=== PATIENT | male | born 1960 | race Two or more races ===

== ENCOUNTER 2025-02-12 02:01 | Inpatient (IN) | payer BC, SELFPAY ==
[2025-02-11 19:16] VITALS: BP 131/73
--- NOTE | 2025-02-11 19:35 | ED.GENMED ---
History of Present Illness
<Nneka Shannon PHARMACY CONSULTANT - Last Filed: 02/12/25 02:11>
General
Chief Complaint: Fever
Source: patient and family (fiance at bedside)
Exam Limitations: none
Time Seen by Provider: 02/11/25 19:34
Nursing documentation reviewed up to this point in time: agreed with
History of Present Illness
History of Present Illness:
64-year-old male with history of aortocoronary bypass, NIDDM, HLD, woke at 3 a.m with rigors for 2 hours, went back to sleep until 1 p.m, awakened with headache /10, mild confusion (per fiance at bedside) fever 102.9, nausea, no vomiting. No
diarrhea. Denies CP, SOB, abdominal pain. No known sick contacts, no recent travel.
Has taken nothing for fever/headache. States h/a much improved 01/31 now
[place] well yesterday,, went out to dinner and ice cream.
Past History
<Nneka Shannon, PHARMACY CONSULTANT - Last Filed: 02/12/25 02:11>
Past History
ED Past Medical History: Hypercholesterolemia and NIDDM
ED Past Surgical History: Cardiac (Heart valve/triple bypass) and Orthopedic (Lumbar spinal fusion June 2024, R and L shoulder and knee surgeries, carpal tunnel)
Social History
Tobacco: Smoker
Alcohol: None
Drug: None
Personal: Partner (Fianc� at bedside)
Employment: Disabled
Review of Systems
<Nneka Shannon, PHARMACY CONSULTANT - Last Filed: 02/12/25 02:11>
Review of Systems
Allergies reviewed?: Yes
All Other Systems: ROS reviewed and negative except as documented in HPI and ROS
Constitutional: Reports fever, fatigue and chills
EENT: Denies sore throat
Respiratory: Reports cough; Denies trouble breathing
Cardiac: Denies chest pain
ABD/GI: Reports nausea; Denies abdominal pain, vomiting, diarrhea or constipated
: Denies dysuria, frequency or difficulty voiding
Musculoskeletal: Reports back pain (chronic)
Skin: Reports no symptoms
Neurological: Reports headache (improving); Denies dizzy, weakness or numbness
Phy Exam
<Nneka Shannon, PHARMACY CONSULTANT - Last Filed: 02/12/25 02:11>
Physical Exam
Physical Exam:
GENERAL: No acute distress. A&Ox3.
CONSTITUTIONAL: 102.9
EYES: clear, conjunctivae normal
ENMT: moist mucus membranes, Pharynx nl
Neck: Supple
RESPIRATORY: Regular respirations, nonlabored, lungs clear. Intermittent dry cough
CARDIOVASCULAR: Regular rate and rhythm, no murmurs, no rubs.
GI: Soft, nontender, normal BS
MUSCULOSKELETAL: Moves with ease. Well perfused. No edema
SKIN: Warm, dry, pink
PSYCH: Normal mood and affect. Well kept, interactive and appropriate
NEUROLOGIC: Awake, alert and oriented. No focal neurological deficits
Course
<Nneka Shannon, PHARMACY CONSULTANT - Last Filed: 02/12/25 02:11>
Orders/Labs/Results
Orders:
Orders
02/11/25 19:19
CR Chest - 2 Views Urgent
Comment:
Reason For Exam: fever
02/11/25 19:46
Acetaminophen [Tylenol] 1,000 mg PO NOW STA
02/11/25 19:47
0.9% Sodium Chloride 1000 ml [Nss] 1,000 ml IV BOLUS
Acetaminophen [Tylenol] 1,000 mg .ROUTE .STK-MED ONE
02/11/25 19:55
COVID-19 Antigen Urgent
Source: Nasal Swab
Complete Blood Count/With Diff Urgent
Comprehensive Metabolic Panel Urgent
NT-proBNP Urgent
Comment: ADD ON
Influenza A+B Rapid Molecular Urgent
[facility] Source: Nasal Swab
Specimen Description:
02/11/25 21:41
Add On- LAB Urgent
Tests Added?: BNP
02/11/25 22:59
Urinalysis Reflex To Culture Urgent
Date Specimen was Collected: 02/11/25
Time Specimen was Collected: 22:52
Urine Microscopic Reflex Cult Urgent
Urine Culture Urgent
[facility] Source: U
Specimen Description:
Date Specimen was Collected: 02/11/25
Time Specimen was Collected: 22:52
02/11/25 23:29
Azithromycin 500 mg/250 ml [Zithromax Infusion] 500 mg in 250 ml IV NOW
CefTRIAXone [Rocephin] 1,000 mg IV NOW STA
02/11/25 23:45
Lactic Acid Q4H
Comment: CANCEL 2nd LACTIC ACID IF 1st LACTIC ACID IS LESS THAN 2
Blood Culture Q30M
[facility] Source: Blood/Venous
Specimen Description:
02/11/25 23:55
Ibuprofen [Motrin] 800 mg PO NOW STA
02/12/25 00:09
Blood Culture Q30M
[facility] Source: Blood/Venous
Specimen Description:
02/12/25 00:11
Procalcitonin Urgent
Comment: REDRAW
02/12/25 01:44
MRSA Screen Routine
[facility] Source: Nose
Specimen Description:
Vancomycin 1 Gram/200 ml [Vancocin] 1 gram in 200 ml IV NOW
02/12/25 01:45
Admit/Transfer Patient As Directed
Co-Sign Provider:
Level of Care: Inpatient admission
Assign to:: Telemetry
Physician / Group: Candido
Diagnosis: Sepsis
Reason for Telemetry: Arrhythmia
Date to Stop Telemetry: 02/15/25
Time to Stop Telemetry: 11:00
Reason for Hospitalization: Sepsis
Expected length of stay greater than two midnights?: Yes
ELOS- Estimated Length of Stay in days: 3
I certify the patient meets the requirements for IP care: Yes
PRN Pain Medication Management As Directed
May give lesser potent ordered pain med per pt: Yes
preference::
Protocol:: Medication orders for pain may be administered in a
manner that supports deferring to patient preference
when the pt is:
- Requesting an ordered lesser potent pain medication.
Least to most potent pain medications are defined
as: acetaminophen < NSAID < tramadol < opioids
(morphine, oxycodone, hydromorphone).
- Requesting a lesser dose of the same medication IF
ORDERED.
- Requesting a less intrusive route of administration
if both routes are prescribed by the provider (PO <
IV).
02/12/25 01:46
Code Status As Directed
Resuscitation Status: Full Code
02/15/25 11:00
DC Protocol for Telemetry ONCE
Abnormal Lab Results
02/11/25 02/11/25 02/12/25
19:55 22:59 00:11
WBC 13.2 H 10^3/uL
(4.8-10.8)
RBC 4.03 L 10^6/uL
(4.70-6.10)
Hgb 12.5 L g/dL
(13.0-18.0)
Hct 35.8 L %
(39.0-52.0)
Abs Immat Gran (auto) 0.1 H 10^3/uL
(0-0.05)
Absolute Neuts (auto) 10.6 H 10^3/uL
(1.4-6.5)
Absolute Monos (auto) 0.8 H 10^3/uL
(0.1-0.6)
Immature Gran % 0.8 H %
(0-0.5)
Neutrophils % 80.3 H %
(42.2-75.2)
Lymphocytes % 12.9 L %
(20.5-51.1)
Sodium 131 L mmol/L
(135-145)
Carbon Dioxide 20 L mmol/L
(22-30)
BUN 26 H mg/dl
(9-20)
Glucose 139 H mg/dl
(70-99)
Procalcitonin 9.03 H* ng/ml
(0.0-0.25)
Ur Occult Blood Reflex 2+ A
(Negative)
Urine RBC 3-6 A /HPF
(0-2)
Urine Bacteria (Reflex) Moderate A
(Negative)
Urine Albumin (Reflex) 3+ A
(Neg - Trace)
02/11/25 19:55
02/11/25 19:55
Vital Signs
Temp: 102.9 F
Initial and Last Documented VS:
Initial Vital Signs
Temp Pulse Resp BP Pulse Ox
100.1 F 111 20 131/73 98
02/11/25 19:16 02/11/25 19:16 02/11/25 19:16 02/11/25 19:16 02/11/25 19:16
Last Documented Vital Signs
Temp Pulse Resp BP Pulse Ox
100.9 F H 101 16 118/74 98
02/12/25 00:17 02/12/25 00:07 02/12/25 00:07 02/12/25 00:07 02/12/25 00:07
<Natasha Conner, DO - Last Filed: 02/11/25 23:56>
Orders/Labs/Results
Orders:
Orders
02/11/25 19:19
CR Chest - 2 Views Urgent
Comment:
Reason For Exam: fever
02/11/25 19:46
Acetaminophen [Tylenol] 1,000 mg PO NOW STA
02/11/25 19:47
0.9% Sodium Chloride 1000 ml [Nss] 1,000 ml IV BOLUS
Acetaminophen [Tylenol] 1,000 mg .ROUTE .STK-MED ONE
02/11/25 19:55
COVID-19 Antigen Urgent
Source: Nasal Swab
Complete Blood Count/With Diff Urgent
Comprehensive Metabolic Panel Urgent
NT-proBNP Urgent
Comment: ADD ON
Influenza A+B Rapid Molecular Urgent
[facility] Source: Nasal Swab
Specimen Description:
02/11/25 21:41
Add On- LAB Urgent
Tests Added?: BNP
02/11/25 22:59
Urinalysis Reflex To Culture Urgent
Date Specimen was Collected: 02/11/25
Time Specimen was Collected: 22:52
Urine Microscopic Reflex Cult Urgent
Urine Culture Urgent
[facility] Source: U
Specimen Description:
Date Specimen was Collected: 02/11/25
Time Specimen was Collected: 22:52
02/11/25 23:29
Azithromycin 500 mg/250 ml [Zithromax Infusion] 500 mg in 250 ml IV NOW
CefTRIAXone [Rocephin] 1,000 mg IV NOW STA
02/11/25 23:45
Lactic Acid Q4H
Comment: CANCEL 2nd LACTIC ACID IF 1st LACTIC ACID IS LESS THAN 2
Blood Culture Q30M
[facility] Source: Blood/Venous
Specimen Description:
02/11/25 23:55
Ibuprofen [Motrin] 800 mg PO NOW STA
02/12/25 00:09
Blood Culture Q30M
[facility] Source: Blood/Venous
Specimen Description:
02/12/25 00:11
Procalcitonin Urgent
Comment: REDRAW
02/12/25 01:44
MRSA Screen Routine
[facility] Source: Nose
Specimen Description:
Vancomycin 1 Gram/200 ml [Vancocin] 1 gram in 200 ml IV NOW
02/12/25 01:45
Admit/Transfer Patient As Directed
Co-Sign Provider:
Level of Care: Inpatient admission
Assign to:: Telemetry
Physician / Group: Candido
Diagnosis: Sepsis
Reason for Telemetry: Arrhythmia
Date to Stop Telemetry: 02/15/25
Time to Stop Telemetry: 11:00
Reason for Hospitalization: Sepsis
Expected length of stay greater than two midnights?: Yes
ELOS- Estimated Length of Stay in days: 3
I certify the patient meets the requirements for IP care: Yes
PRN Pain Medication Management As Directed
May give lesser potent ordered pain med per pt: Yes
preference::
Protocol:: Medication orders for pain may be administered in a
manner that supports deferring to patient preference
when the pt is:
- Requesting an ordered lesser potent pain medication.
Least to most potent pain medications are defined
as: acetaminophen < NSAID < tramadol < opioids
(morphine, oxycodone, hydromorphone).
- Requesting a lesser dose of the same medication IF
ORDERED.
- Requesting a less intrusive route of administration
if both routes are prescribed by the provider (PO <
IV).
02/12/25 01:46
Code Status As Directed
Resuscitation Status: Full Code
02/15/25 11:00
DC Protocol for Telemetry ONCE
Abnormal Lab Results
02/11/25 02/11/25 02/12/25
19:55 22:59 00:11
WBC 13.2 H 10^3/uL
(4.8-10.8)
RBC 4.03 L 10^6/uL
(4.70-6.10)
Hgb 12.5 L g/dL
(13.0-18.0)
Hct 35.8 L %
(39.0-52.0)
Abs Immat Gran (auto) 0.1 H 10^3/uL
(0-0.05)
Absolute Neuts (auto) 10.6 H 10^3/uL
(1.4-6.5)
Absolute Monos (auto) 0.8 H 10^3/uL
(0.1-0.6)
Immature Gran % 0.8 H %
(0-0.5)
Neutrophils % 80.3 H %
(42.2-75.2)
Lymphocytes % 12.9 L %
(20.5-51.1)
Sodium 131 L mmol/L
(135-145)
Carbon Dioxide 20 L mmol/L
(22-30)
BUN 26 H mg/dl
(9-20)
Glucose 139 H mg/dl
(70-99)
Procalcitonin 9.03 H* ng/ml
(0.0-0.25)
Ur Occult Blood Reflex 2+ A
(Negative)
Urine RBC 3-6 A /HPF
(0-2)
Urine Bacteria (Reflex) Moderate A
(Negative)
Urine Albumin (Reflex) 3+ A
(Neg - Trace)
02/11/25 19:55
02/11/25 19:55
Vital Signs
Initial and Last Documented VS:
Initial Vital Signs
Temp Pulse Resp BP Pulse Ox
100.1 F 111 20 131/73 98
02/11/25 19:16 02/11/25 19:16 02/11/25 19:16 02/11/25 19:16 02/11/25 19:16
Last Documented Vital Signs
Temp Pulse Resp BP Pulse Ox
100.9 F H 101 16 118/74 98
02/12/25 00:17 02/12/25 00:07 02/12/25 00:07 02/12/25 00:07 02/12/25 00:07
<Nneka Shannon PHARMACY CONSULTANT - Last Filed: 02/12/25 02:11>
MDM/Problems Addressed
Differential Diagnosis Includes:
PNA, Covid, Flu
MDM/Problems Addressed:
64-year-old male with history of aortocoronary bypass, NIDDM, HLD, woke at 3 a.m with rigors for 2 hours, went back to sleep until 1 p.m, awakened with headache 10/10, mild confusion (per fiance at bedside) fever 102.9, nausea, no vomiting. No
diarrhea. Denies CP, SOB, abdominal pain. No known sick contacts, no recent travel.
[place] well yesterday,, went out to dinner and ice cream.
Temp 102.9 for this examiner
8:30 p.m.
CBC: WBC 13.2 w elevated neutrophils
CMP: BUN 26 IVF's infusing for mild dehydration
CXR: Radiology report read: IMPRESSION: Prominence of the pulmonary vascular markings suspicious for mild interstitial edema.
Covid neg
Flu neg
10:45 PM:
BNP 1330
U/A pending
64 yo male with hx NIDDM, aortocoronary bypass, here with fever, chills, CXR showing CHF vs PNA
Case discussed with Dr. Conner: May be a little consolidation right perihilar area: she is not convinced he has CHF, he has some right flank pain, mild crackles, will give antibiotic for likely PNA
Plan: Admit: PNA, fever,
Blood culture x2, procalcitonin, Lactic x 2 pending
Antibiotics ordered.
1:00 a.m.
Procalcitonin 9.03
Hospitalist notified of admission.
<Nneka Shannon PHARMACY CONSULTANT - Last Filed: 02/12/25 02:11>
*Critical Care Note
Total Time (30-74mins, 75-104mins- exclusive of procedures): Not Applicable
ED Attending Note
<Nneka Shannon PHARMACY CONSULTANT - Last Filed: 02/12/25 02:11>
-
Portions of this chart may have been created with voice recognition software.� Occasional wrong word or��sound alike� substitutions may have occurred due to the inherent limitations of voice recognition software.
<Natasha Conner DO - Last Filed: 02/11/25 23:56>
ED Attending Note
Patient seen and examined by attending physician: Yes
I performed the substantive portion of visit, reviewed & personally made and approve the management plan that is documented in note by myself or CALIXTO.: Yes
ED Attending Note:
This is a 64-year-old gentleman who has history of hypertension, CAD, valvular heart disease who underwent CABG, bioprosthetic aortic valve replacement 2 years ago. He also has history of lumbar disc disease and underwent lumbar laminectomy 6
months ago. He reports no history of chronic lung disease but does follow with a aluminum molder and notes history of pulmonary nodules which is followed with surveillance CAT scans. He reports no history of CHF, no history of cardiomyopathy.
He complains of 1 day history of shaking chills, generalized fatigue, mild nasal congestion and intermittent dry cough.
He has had some chronic low back pain since surgery, nonradiating, generally takes ibuprofen 800 mg once per day. He does note increased in right low back pain over the past day or 2. No insightful injury.
He denies abdominal pain, no nausea no vomiting, no diarrhea or constipation. No dysuria and urgency and or hematuria.
No known exposure to any others with similar symptoms. No recent travel.
He does smoke cigarettes.
His daily medications include: Metoprolol, low-dose aspirin, metformin, Repatha, Mounjaro 2.5 mg weekly, omeprazole, ibuprofen 800 mg which he generally takes once per day.
64-year-old gentleman appears his stated age, awake and alert, pleasant, appears in no acute distress. Significantly febrile. Hemodynamically stable.
HEENT: Minimally boggy turbinates. Posterior pharynx is clear.
Neck is supple, nontender, no meningismus. No adenopathy.
Heart is regular rate and rhythm, 3/6 holosystolic murmur left sternal border.
Lungs: No respiratory distress. Fine rales right base otherwise clear to auscultation. Rare dry cough is noted.
Abdomen is soft without appreciable tenderness.
Back: Midline vertical lumbar surgical scar dry and intact without erythema nor soft tissue swelling. There is mild tenderness right lower lumbar paravertebral region. Moderately restricted lumbar range of motion related to pain. Straight leg
raising mildly positive on the right.
Extremities: No clubbing or cyanosis nor edema. Peripheral pulses are full and equal. Nontender.
COVID and influenza testing are negative.
White blood cell count elevated at 13.2.
Preliminary urinalysis is unremarkable.
Chest x-ray report concerning for CHF however upon my review, normal heart size and there is note of somewhat fluffy interstitial disease but more pronounced right lower lobe concerning for focal infiltrate right lower lobe.
BNP elevated at 1300.
We have no old chest x-ray nor BNP to compare.
With acute febrile illness, cough, chest x-ray findings are more concerning for pulmonary infiltrate/pneumonic process.
He does note increased right low back pain, concern for potential discitis, epidural abscess however no risk factors for hematogenous spread and surgical procedure 6 months ago thus postop infection is unlikely.
Will check lactic acid, blood cultures, procalcitonin and plan to initiate IV antibiotics for coverage of community-acquired pneumonia and admit to hospitalist service.
He has been given Tylenol for fever. Will add ibuprofen. Due to concern for potential CHF we will be judicious with IV fluids.
Discharge Plan
Departure
Patient Disposition: Admit
Date of Disposition: 02/11/25
Time of Disposition: 23:28
Admit to: Med/Surg
Presentation/result/management discussed w/ accepting MD/DO: Hospitalist
Discharge Problem:
Pneumonia
Interventions
Interventions:
*Risk Screen - Suicide Last Done: 02/11/25 19:50
*General Assessment Last Done: 02/11/25 19:16
*Neglect/Abuse Screening Last Done: 02/11/25 19:50
*ED- Fall Risk Assessment Last Done: 02/11/25 19:50
*ED COVID-19 Vaccine History Last Done: 02/11/25 19:50
ED- Neurological Assessment Last Done: 02/11/25 20:21
ED-Skin Assessment Last Done: 02/11/25 20:21
[2025-02-11 19:50] VITALS: BMI 27.8
[2025-02-11] MEDS: NSS 1000 IV (20:01)
[2025-02-11] MEDS: TYLENOL 1000 MG PO (20:01)
[2025-02-11 20:12] LABS: % Basophils 0.2 % (0-2); % Immature Granulocytes 0.8 % (0-0.5); % Lymphocytes 12.9 % (20.5-51.1); % Monocytes 5.8 % (1.7-9.3); % Neutrophils 80.3 % (42.2-75.2); Absolute Immature Granulocytes 0.1 10^3/uL (0-0.05); Absolute Lymphocytes 1.7 10^3/uL (1.2-3.4); Absolute Monocytes 0.8 10^3/uL (0.1-0.6); Absolute Neutrophils 10.6 10^3/uL (1.4-6.5); Hematocrit 35.8 % (39.0-52.0); Hemoglobin 12.5 g/dL (13.0-18.0); Mean Corp Hgb Conc. 34.9 g/dL (33.0-37.0); Mean Corpuscular Volume 88.8 fL (80.0-94.0); Mean Platelet Volume 9.5 fL (7.4-10.4); Nucleated Red Blood Cells % 0 % (-); Platelet Count 240 10^3/uL (130-400); Red Blood Cell Count 4.03 10^6/uL (4.70-6.10); Red Cell Dist. Width 14.3 % (11.5-14.5); White Blood Cell Count 13.2 10^3/uL (4.8-10.8)
[2025-02-11 20:33] LABS: ALT (SGPT) 16 U/L (0-50); AST (SGOT) 23 U/L (17-59); Albumin 4.5 g/dl (3.5-5.0); Alkaline Phosphatase 48 U/L (38-126); Blood Urea Nitrogen 26 mg/dl (9-20); Calcium 9.1 mg/dl (8.4-10.2); Carbon Dioxide 20 mmol/L (22-30); Chloride 101 mmol/L (98-107); Estimated Creatinine Clearance 79 ml/min; Glucose 139 mg/dl (70-99); Potassium 4.4 mmol/L (3.5-5.1); Sodium 131 mmol/L (135-145); Total Bilirubin 0.7 mg/dl (0.2-1.3); Total Protein 6.6 g/dl (6.3-8.2); eGFR > 60.00
[2025-02-11 20:42] LABS: COVID-19 Antigen Negative (Negative)
[2025-02-11 22:00] VITALS: BP 107/63
--- NOTE | 2025-02-11 22:17 | EDRN ---
Patient is resting with family at bedside
[2025-02-11 22:39] LABS: NT-proBNP 1330 pg/ml
[2025-02-11 23:06] LABS: Urine Albumin 3+ (Neg - Trace); Urine Bilirubin Negative (Negative); Urine Character Clear (Clear); Urine Color Yellow; Urine Glucose Negative (Negative); Urine Ketone Negative (Negative); Urine Leukocyte Negative (Negative); Urine Nitrite Negative (Negative); Urine Occult Blood 2+ (Negative); Urine Urobilinogen Negative (Neg - 1+)
[2025-02-12] VITALS (7 sets, daily range): BP systolic 102–128; BP diastolic 55–74; BMI 27.0
[2025-02-12] MEDS: MOTRIN 800 MG PO ×2 (00:02→08:20)
[2025-02-12] MEDS: ROCEPHIN 1000 MG IV (00:02)
[2025-02-12] MEDS: ZITHROMAX INFUSION 250 IV (00:03)
--- NOTE | 2025-02-12 00:09 | EDRN ---
Blood cultures were drawn before antibiotics given, patient resting.
[2025-02-12 00:16] LABS: Lactic Acid 1.2 mmol/L (0.7-2.0)
[2025-02-12 00:34] LABS: Urine Mucus Many
[2025-02-12 00:41] LABS: Urine Bacteria Moderate (Negative)
[2025-02-12 00:52] LABS: Procalcitonin 9.03 ng/ml (0.0-0.25)
--- NOTE | 2025-02-12 01:49 | HPS.HSE ---
Family Physician
-
Family Physician: * NONE
Chief Complaint
-
Chills, Fever
History of Present Illness
Patient is a 64y M with PMH significant for ASCVD, hypertension and chronic back pain who presents to ED complaining of fevers / chills. Patient states that he had been feeling well until yesterday AM when he developed shaking chills at home and
fever to 103 degrees. Patient also noted severe R lower back pain and noted that he was unable to move / get out of bed due to his symptoms. He has had intermittent fevers / chills and persistent back pain since that time and presented to the ED
today for further evaluation and treatment. No known sick contacts or recent travel. He has 3yo at home who attends day care - but she has had no obvious / recent illnesses.
Patient has mild / chronic cough - no acute changes / increase in symptoms.
No N/V/D. No urinary complaints.
R sided low back pain - worse with movement. No LE pain, numbness, weakness. No urinary / fecal incontinence.
Medical History
Past Medical History
Past Medical History: Reports Other
Additional Past Medical History:
ASCVD
Aortic Stenosis
Lumbar DDD / Sciatica
Hypertension
DM-II
Past Surgical History: Reports Other
Additional Past Surgical History:
CABG x 3
Aortic Valve Replacement
Lumbar Laminectomy / Fusion (June 2024)
Bilateral Knee Arthroscopies
Bilateral Rotator Cuff Repairs
Bilateral Piriformis / Pudendal Nerve Releases
Social History
Tobacco: Smoker (Current every day smoker. 1/2 ppd for total of > 30 pack years.)
Alcohol: None
Drug: None
Family History
Family History: Other (Father: CAD ( at age 60) Mother: Breast Cancer, ESRD)
Allergies / Home Medications
Allergies reflects when Allergies were last updated in [facility].
Home Medications with original date entered in [facility]
Allergy/Medication List:
Allergies
Allergy/AdvReac Type Severity Reaction Status Date / Time
[id number] Reductase Allergy Unknown Verified 02/11/25 19:16
Inhibitor
Home Medications
aspirin 81 mg tablet,delayed release 81 mg PO DAILY 02/11/25
evolocumab 140 mg/mL subcutaneous pen injector (Repatha SureClick) 140 mg SC Q2W 02/11/25
fluticasone propionate 50 mcg/actuation nasal spray,suspension 1 spray intranasal DAILYPRN PRN congestion 02/11/25
ibuprofen 800 mg tablet 800 mg PO TIDPRN PRN mild pain 02/11/25
metformin 500 mg tablet,extended release 24 hr 500 mg PO DAILY 02/11/25
metoprolol succinate 25 mg tablet,extended release 24 hr 25 mg PO DAILY 02/11/25
omeprazole 40 mg capsule,delayed release 40 mg PO DAILY 02/11/25
tirzepatide 2.5 mg/0.5 mL subcutaneous pen injector (Mounjaro) 2.5 mg SC TH 02/11/25
Review of Systems
-
History Source: Patient
A 12 point ROS was completed and negative except as noted: Yes
Constitutional: Reports Fever, Fatigue and Chills
EENT: Denies Sore Throat
Respiratory: Reports Cough; Denies Hemoptysis or Trouble Breathing
Cardiac: Denies Chest Pain or Palpitations
Abdomen/GI: Denies Abdominal Pain, Nausea, Vomiting or Diarrhea
: Reports Flank Pain; Denies Dysuria or Frequency
Musculoskeletal: Reports Other (Back Pain); Denies Joint Pain or Edema
Neurological: Denies Dizzy, Headache, Weakness or Numbness
Psych: Denies Depression or Anxiety
Physical Exam
Vital Signs
Vital Signs
Temp Pulse Resp BP Pulse Ox
100.9 F H 101 16 118/74 98
02/12/25 00:17 02/12/25 00:07 02/12/25 00:07 02/12/25 00:07 02/12/25 00:07
Physical Exam
General: Other (64y M in no acute distress. Pos diaphoretic.)
HEENT: Moist mucous membranes and PERRLA
Respiratory: Other (Few bibasilar rales - otherwise clear.)
Cardiac: S1/S2, Regular Rhythm and Murmur (II/ YING)
GI: Soft, Non Tender, Non Distended and Normal Bowel Sounds
Musculoskeletal: No Clubbing, No Cyanosis, No Edema and Other (Pos tenderness R lower back / Iliac crest.)
Neuro: AO x 3
Laboratory Results
-
02/11/25 19:55
02/11/25 19:55
Laboratory Results
Lactic Acid Cancelled 02/12/25 03:30
Total Bilirubin 0.7 mg/dl (0.2-1.3) 02/11/25 19:55
AST 23 U/L (17-59) 02/11/25 19:55
ALT 16 U/L (0-50) 02/11/25 19:55
Alkaline Phosphatase 48 U/L (38-126) 02/11/25 19:55
Impression/Plan
-
A/P: Patient is a 64y M with PMH significant for ASCVD, hypertension and DM-II who presents to ED for evaluation fo fevers / chills since yesterday AM.
Sepsis
- Admit for further evaluation and treatment.
- Unclear source at this time with possibilities including pulmonary, lumbar, etc.
- Patient presents with fever, tachycardia, tachypnea, leukocytosis and abnormal CXR and procalcitonin levels.
- COVID / Flu negative in the ED.
- CXR appears consistent with an atypical pneumonia.
- Continue empiric abx for now with Zosyn.
- One dose of Vanco on admission pending MRSA swab.
- Follow-up culture data - blood cultures sent in the ED.
- Follow fever curve. Monitor for any new / focal complaints of symptoms.
- ID evaluation.
- Check lumbar MRI for evidence of hardware / associated infection.
- Check Echo.
ASCVD
- Stable. Continue current CV med regimen including ASA.
Benign Hypertension
- Stable. Continue current medication with holding parameters.
DM-II
- Stable. Hold metformin / Mounjaro acutely.
- Follow glucose and cover with SSI as needed.
- Update A1C.
DVT Prophylaxis: Lovenox
Code Status: Full
[2025-02-12] MEDS: VANCOCIN 540 MG IV (02:35)
--- NOTE | 2025-02-12 03:30 | PTCARENOTE ---
Patient arrived from ED via stretcher to [facility], ambulated from stretcher to bed with standby assist and tolerated well. Fever present in ED, VSS upon arrival. Initiated on school bus monitor #9, SR/ST. IV beltrano running from ED, just started infusion,
no issues. Patient is c/o back pain, has hx chronic back pain with recent surgery June 2024 -- requesting dose of Motrin as this is the only thing he takes at home. Received dose at midnight in ED, notified SALES TRAINING MANAGER - currently no new orders. Call
dobbs in reach, will monitor.
[2025-02-12] MEDS: LR 1000 IV (04:45)
[2025-02-12 05:54] LABS: Hematocrit 31.9 % (39.0-52.0); Mean Corp Hgb Conc. 34.5 g/dL (33.0-37.0); Mean Corpuscular Hgb 30.9 pg (27.0-31.0); Mean Corpuscular Volume 89.6 fL (80.0-94.0); Platelet Count 219 10^3/uL (130-400); Red Blood Cell Count 3.56 10^6/uL (4.70-6.10); Red Cell Dist. Width 14.4 % (11.5-14.5); White Blood Cell Count 10.5 10^3/uL (4.8-10.8)
[2025-02-12] MEDS: ZOSYN 50 IV ×3 (05:57→17:25)
[2025-02-12 06:02] LABS: Blood Urea Nitrogen 25 mg/dl (9-20); Calcium 8.7 mg/dl (8.4-10.2); Carbon Dioxide 20 mmol/L (22-30); Chloride 105 mmol/L (98-107); Estimated Creatinine Clearance 79 ml/min; Glucose 110 mg/dl (70-99); Potassium 3.8 mmol/L (3.5-5.1); Sodium 133 mmol/L (135-145); eGFR > 60.00
[2025-02-12 07:58] LABS: Glucose - Point of Care 104 mg/dl (70-99)
[2025-02-12] MEDS: ASPIR LOW (ENTERIC COATED) 81 MG PO (08:02)
[2025-02-12] MEDS: TOPROL XL 25 MG PO (08:03)
[2025-02-12] MEDS: NOVOLOG FLEXPEN-LOW RESISTANCE SC ×3 (08:04→17:25)
[2025-02-12] MEDS: NSS 250 IV (08:04)
[2025-02-12] MEDS: OMNIPAQUE 50 ML PO (08:31)
--- NOTE | 2025-02-12 09:08 | W.PN.HOSP.TC ---
Today's Communication/Plan
-
see PN
Assessment / Plan
Assessment / Plan
64yo M with PMHx of CAD s/p CABG, lumbar surgery in June 2024 in [facility], bioprosthetic AV, DM, COPD, HLD came with episode of nighttime chills and rigors. Also found worsening lower back pain. Found possible UTI
No respiratory, urinary, GI symptoms. No rash or wouns
A/P:
#Fever, rigors possible UTI
#Lower back pain with PMHX of back surgery
#Hx of bioprostetic AV with midsystolic murmur
#Elevated procalcitonin
Chest XR without pneumonia, but with mild interstitial edema
Bcx NTD
Ucx pending
US renal
MRI lumbar
Echo
ID cosnult, meanwhile cont Vanco/ZOsyn
Check Lyme and blood for parazites
#Headache
CT head
#DM type 2 with unknown complications
Insulin SS, accuchekcs, DM diet
#CAD stable
#HLD
cont home meds
DVT ppx lovenox
Full code
I have spent at least 58min reviewing chart, test reuslts, providing direct patient care
Anticipated Discharge: > 48 hours
Subjective/Interval History
-
Date of Service: February 12, 2025
Objective Data
-
Labs:
Laboratory Results
02/12/25
05:06
WBC 10.5
Hgb 11.0 L
Hct 31.9 L
Plt Count 219
Sodium 133 L
Potassium 3.8
Chloride 105
Carbon Dioxide 20 L
BUN 25 H
Creatinine 1.0
Glucose 110 H
Calcium 8.7
Vital Signs:
Vital Signs
Temp Pulse Resp BP Pulse Ox
99.2 F 90 16 104/63 99
02/12/25 07:24 02/12/25 07:24 02/12/25 07:24 02/12/25 07:24 02/12/25 07:24
I&O
02/11/25 02/12/25 02/13/25
06:59 06:59 06:59
Intake Total 550 / 550
Balance 550 / 550
Review of Systems
-
History Source: Patient
All other systems: Reviewed and negative
Musculoskeletal: Reports Other (back pain)
Physical Exam
-
General: No Apparent Distress
HEENT: Normocephalic
Respiratory: Clear to Auscultation; Negative Wheezes
GI: Soft, Nontender and Nondistended
Genito-urinary: No Costovertebral Tender
Musculoskeletal: No Clubbing, No Cyanosis and No Edema
Skin: Warm; Negative Rash, Ulcers, Lesions or Decubitus Ulcers
Neuro: Awake, Alert, Oriented and AO x 3
Psych: Calm
[2025-02-12 11:52] LABS: Glucose - Point of Care 100 mg/dl (70-99)
[2025-02-12 13:42] LABS: Glycohemoglobin (HgbA1c) 5.7 % (4.0-5.6)
--- NOTE | 2025-02-12 14:22 | W.PN.UPDATE ---
Addendum entered and electronically signed by Ramo Sifuentes MD 02/12/25 15:05:
As per [facility]: anatomically inaccessible for drain by them
Original Note:
Update Note
Progress Note Update
#Prevdertebral abscess noted with concern for possible vertebral OM complicated by bacteremia
-neuroSx
-Irad for drain and Cx - send acid fast cultures also
-cont Abx pedning final Cx
-Repeat Bcx
--- NOTE | 2025-02-12 14:45 | CON.ID ---
Consultation
-
Date/Time Consultation Requested: 02/12/2025 0244
Date/Time Consultation Performed: 02/12/2025 1248
Requesting Provider: Dr. Rey
Performing Provider: Dr. Hannon
Reason for Consultation: Fever/sepsis
Chief Complaint / Past History
History of Present Illness
Antonio De La Cruz is a 64-year-old man being evaluated at the request of Dr. Rey in regards to fever and rigors. History is obtained from chart review, along with patient interview.
The patient has a significant past medical history of bioprosthetic AVR, along with a lumbar fusion. He was in his usual state of health until yesterday morning when he woke up with acute rigors and chills around 3 AM. According to his fianc�e he
fell back asleep around 6:30 AM and slept until 1 PM. Later in the day when he got up he appeared confused and too weak to be generally even get off the couch. His fianc�e helped him to the floor and brought him to the emergency room for further
evaluation. Here, blood cultures were obtained (which are now positive). At the present time he reports fevers and low back discomfort which is increased over the prior 2 weeks. He denies any recent dental work.
Past History
Additional Past Medical History:
Dyslipidemia
DM
Additional Past Surgical History:
AVR (bioprosthetic, ~2022; [facility])
CABG
Lumbar fusion
Allergy History:
Eqyonbs-ECP-NkM Reductase Inhibitor Allergy (Verified 02/11/25 19:16)
Unknown
Medications Reviewed: Yes
Current Antibiotics:
Zosyn 3.375 g IV every 6 hours
Social History
Tobacco: Smoker
Alcohol: None
Drug: None
Personal: Other
Living: With Family
Employment: Employed
Family History
Family History: Not Pertinent
Review of Systems
Vital Signs
Temp Pulse Resp BP Pulse Ox
99 F 86 14 102/58 96
02/12/25 11:19 02/12/25 11:19 02/12/25 11:19 02/12/25 11:19 02/12/25 11:19
Physical Exam
Physical Exam
Constitutional: No Acute Distress, Comfortable and Non-toxic
Head: Normocephalic
Eyes: Pupils Equal, Pupils Round, No Conjunctival Hemorrhage and Sclera Anicteric
Oral: No Thrush and No Ulcers
Cardiovascular: Regular Rate, S1/S2 and Murmur (IV/); Negative S3/S4
Pulmonary: Clear; Negative Wheezes, Rales or Rhonchi
Gastrointestinal: Soft, Non Tender and Non Distended
Extremities: Negative Edema, Cyanosis, Erythema, Splinter Hemorrhage or Jan[place]ay Lesions
Skin: Warm and Dry; Negative Rash or Jaundice
Neurological: Awake and Alert
Psychological: Calm
.
Lab / Diagnostic Study Results
02/12/25 05:06
02/12/25 05:06
Abs Immat Gran (auto) 0.1 10^3/uL (0-0.05) H 02/11/25 19:55
Absolute Neuts (auto) 10.6 10^3/uL (1.4-6.5) H 02/11/25 19:55
Absolute Lymphs (auto) 1.7 10^3/uL (1.2-3.4) 02/11/25 19:55
Absolute Monos (auto) 0.8 10^3/uL (0.1-0.6) H 02/11/25 19:55
Absolute Basos (auto) 0.0 10^3/uL (0-0.2) 02/11/25 19:55
Immature Gran % 0.8 % (0-0.5) H 02/11/25 19:55
Neutrophils % 80.3 % (42.2-75.2) H 02/11/25 19:55
Lymphocytes % 12.9 % (20.5-51.1) L 02/11/25 19:55
Monocytes % 5.8 % (1.7-9.3) 02/11/25 19:55
Eosinophils % 0.0 % (0-6) 02/11/25 19:55
Basophils % 0.2 % (0-2) 02/11/25 19:55
Lactic Acid Cancelled 02/12/25 03:30
Procalcitonin 9.03 ng/ml (0.0-0.25) H* 02/12/25 00:11
Ur Squamous Epith Cells 11-15 /LPF (Few) 02/11/25 22:59
Microbiology Results
Micro:
02/12/25 13:32 Blood Culture - Pending
Blood/Venous
02/12/25 08:06 Blood Parasites Smear - Final
Blood/Venous
02/11/25 23:45 Blood Culture - Preliminary
Blood/Venous Positive culture in progress
Gram Stain - Final
02/12/25 00:09 Blood Culture - Preliminary
Blood/Venous Positive culture in progress
Gram Stain - Final
02/12/25 11:33 MRSA Screen - Pending
Nose
02/11/25 22:59 Urine Culture - Pending
Urine
02/11/25 19:55 Influenza Types A & B (CORNELIO) - Final
Nasal Swab Negative for Influenza A & B, NAAT
Negative results must be combined with clinical observations
and patient history.
Nucleic Acid Amplification test (NAAT)performed on the
[employer] platform.
Imaging:
02/12/2025 MRI lumbar spine: There is bone marrow edema and enhancement of the vertebral bodies (L3-S1). Evaluation is limited secondary to the large amount of artifact from patient's anterior and posterior lumbar fusion hardware. No evidence for
discitis or epidural abscess. There is prevertebral soft tissue edema from L3-S1 with fluid collection anterior to L5-S1 level (3.1 x 1.6 x 4.2 cm) concerning for prevertebral abscess. Severe spinal canal stenosis is noted at L3-L4. Please see
full dictation for additional detail.
Assessment / Plan
Fever/chills
Bacteremia (gram-positive cocci in chains)
Leukocytosis
Hx AVR (bioprosthetic)
Hx recent lumbar fusion
Suspected lumbar prevertebral abscess
Recommendations:
Continue with Zosyn and vancomycin for the present.
Await further culture data to guide further antimicrobial selection and tensional de-escalation.
Agree with Neurosurgery evaluation and potential IR aspiration of fluid collection.
- If able to be performed, please send for culture and sensitivities.
Check ESR and CRP.
Check echocardiogram (TTE ordered)
Monitor white count temperature curve.
Will follow repeat blood cultures.
Further recommendations as additional data is returned.
--- NOTE | 2025-02-12 15:08 | PHA.VAN.IN ---
Assessment
- Assessment
Renal Function: Appears similar to baseline
Concomitant Antimicrobials: zosyn
AUC Dosing Plan
- Dosing Variables
Dosing Weight (kg): 85.4
Dosing CrCl (ml/min): 79
Vd coefficient (L/kg): 0.7
- Empiric Dosing
Initial / Loading Dose: 2000mg 02/12
Maintenance Regimen: 1000mg q12h
Estimated AUC (mcg*h/mL): 495
Estimated Peak (mcg*h/mL): 29.4
Estimated Trough (mcg/ml): 13.6
Estimated Half Life (H): 9.9
- Monitoring
No levels ordered at this time: consider at steady state
Pharmacokinetics Vancomycin I
- -
Patient Age: 64
Patient Sex: Male
Vancomycin Day #: 1
Indication: Bacteremia
Requesting Provider: Dr. Hannon
Height / Weight:
Height 5 ft 10 in
Actual Weight 85.366 kg
- Vital Signs / Lab Results
Temp Pulse Resp BP Pulse Ox
99 F 86 14 102/58 96
02/12/25 11:19 02/12/25 11:19 02/12/25 11:19 02/12/25 11:19 02/12/25 11:19
Lab Results - Hematology
02/11/25 02/12/25
19:55 05:06
WBC 13.2 H 10.5
Lab Results - Chemistry
02/11/25 02/12/25
19:55 05:06
BUN 26 H 25 H
Creatinine 1.0 1.0
Estimated Creat Clear 79 79
Albumin 4.5
02/11/25 02/12/25
23:45 03:30
Lactic Acid 1.2 Cancelled
Lab Results - Urine
02/11/25
22:59
Urine Nitrite (Reflex) Negative
Leukocyte Esterase Rfl Negative
Urine WBC (Reflex) 3-5
Ur Squamous Epith Cells 11-15
Urine Bacteria (Reflex) Moderate A
Microbiology Results
02/12/25 08:06 Blood Parasites Smear - Final
Blood/Venous
02/11/25 23:45 Blood Culture - Preliminary
Blood/Venous Positive culture in progress
Gram Stain - Final
02/12/25 00:09 Blood Culture - Preliminary
Blood/Venous Positive culture in progress
Gram Stain - Final
02/11/25 19:55 Influenza Types A & B (CORNELIO) - Final
Nasal Swab Negative for Influenza A & B, NAAT
Negative results must be combined with clinical observations
and patient history.
Nucleic Acid Amplification test (NAAT)performed on the
[employer] platform.
--- NOTE | 2025-02-12 15:24 | W.PN.UPDATE ---
Update Note
Progress Note Update
Attempting to discuss with Dr.Kris Goldstein who did original surgery in june 2024, as drain not anatomically possible by IRAD and neuroSx will not be managing prevertebral fluid collection as discussed with them
--- NOTE | 2025-02-12 16:20 | CON.NS ---
Consultation
-
Date/Time Consultation Performed: 02/12/2025; 16:20
Performing Provider: Chauncey
Chief Complaint
History of Present Illness
This is a neurosurgical consultation on a 64-year-old gentleman who presented early this morning with fevers and chills. He has active medical issues including CABG, ASCVD, hypertension, chronic back pain. He was involved in a work-related injury
for which she underwent an L3- pelvic fixation by an orthopedic surgeon in [place] in June 2024. He reported that he did have some perioperative back pain, but that this resolved to his baseline chronic back pain. He reports that over the
past week, he has had increased back pain, and also right sided rib pain as well as fevers and rigors. He denied any radiating pain to the lower extremities, numbness, tingling, weakness. He denied any bowel or bladder incontinence. He had a
chest x-ray that appeared consistent with possible atypical pneumonia, he was started on antibiotics. Blood cultures were also sent off and this came back positive for gram-positive cocci. MRI of the lumbar spine was also ordered. He is also
being worked up for possible urinary tract infection. MRI of the lumbar spine demonstrated diffuse contrast-enhancement from L3-S1 anteriorly/within the vertebral bodies, as well as prevertebral contrast enhancement with possible small area of
collection at L5-S1 concerning for possible prevertebral abscess. Neurosurgery consulted. Per secure text conversation, I also recommended asking if interventional radiology would be able to access this collection if needed. Per hospitalist,
interventional radiology felt that this was anatomically inaccessible for drainage by them.
Patient seen examined. Partner is at bedside. He is noted to be ambulating the halls. He does report ongoing back pain but denies any radiating pain in the lower extremities. He informs me that indeed the surgery was performed at the other
hospital both with the orthopedic surgeon, as well as a general surgeon who provided access anteriorly, through the abdomen for the anterior portion of the spinal surgery.
Review of Systems
-
10 point review of systems including constitutional, ENT, cardiovascular, respiratory, GI, , neurologic, hematologic, endocrinologic, musculoskeletal was performed, was negative, except for stated in HPI.
Medication and Allergies
Home Medications
Home Medications
�Medication �Instructions �Recorded
aspirin 81 mg tablet,delayed 81 mg PO DAILY 02/11/25
release
evolocumab 140 mg/mL subcutaneous 140 mg SC Q2W 02/11/25
pen injector (Repchato Torresick)
fluticasone propionate 50 1 spray intranasal DAILYPRN PRN 02/11/25
mcg/actuation nasal congestion
spray,suspension
ibuprofen 800 mg tablet 800 mg PO TIDPRN PRN mild pain 02/11/25
metformin 500 mg tablet,extended 500 mg PO DAILY 02/11/25
release 24 hr
metoprolol succinate 25 mg 25 mg PO DAILY 02/11/25
tablet,extended release 24 hr
omeprazole 40 mg capsule,delayed 40 mg PO DAILY 02/11/25
release
tirzepatide 2.5 mg/0.5 mL 2.5 mg SC TH 02/11/25
subcutaneous pen injector
(Mounjaro)
Allergies
Allergies
Allergy/AdvReac Type Severity Reaction Status Date / Time
Enlqtvn-JPO-YkO Reductase Allergy Unknown Verified 02/11/25 19:16
Inhibitor
Physical Exam
-
Exam:
Awake, alert, oriented x 3.
Conversant.
Cranial nerves II through XII are grossly intact.
Motor: 5/5 strength bilaterally in upper extremities and lower extremities.
Sensation to light touch is intact.
Gait is steady.
Lumbosacral incision is well-healed with no evidence of erythema, edema, fluctuance. Nontender to palpation.
Head is normocephalic atraumatic
Neck is supple
Breathing nonlabored
Cardiac: Regular rate
Abdomen is soft
Extremities are warm
MRI lumbar spine performed today, 02/12/2025 with and without contrast was reviewed. Images were personally viewed and interpreted by me. There appears to be pedicle screw fixation noted from L3-S1, as well as iliac screws. There is significant
artifact due to metal. There also appears to be anterior instrumentation noted at L3-4, L4-5, L5-S1. On T2 sagittal, and STIR sequences, I see no obvious evidence of severe acute neural compression secondary to infectious lesion. There is note
made of diffuse contrast enhancement seen within the prevertebral area. This could be consistent with possible phlegmon. Less likely reactive/postoperative. There also appears to be a collection noted at the L5-S1 level within the prevertebral,
presacral space.
Problems
-
Problem Status Onset Code
Pneumonia J18.9
Assessment / Plan
-
This is a 64-year-old gentleman with a history of extensive lumbosacral/iliac fusion who presents with rigors, back pain. He also has history of bioprosthetic valve placement, CABG. Blood cultures positive.
Neurosurgery consulted for MRI findings in setting of back pain.
At present time, recommend ongoing workup for infectious sources. Treat with antibiotics per infectious disease. Trend CRP.
Given location/presacral prevertebral area, this is not readily accessible by neurosurgery as it is anterior to the spine. This is typically accessed by general surgery/vascular surgery if interventional radiology unable to access this.
Would recommend, if this prevertebral collection needs to be accessed/cultured/drained, then likely patient will need to be transferred out.
[2025-02-12 16:51] LABS: Glucose - Point of Care 108 mg/dl (70-99)
[2025-02-12] MEDS: LOVENOX 40 MG SC (17:25)
[2025-02-12] MEDS: PROTONIX 40 MG PO (17:25)
--- NOTE | 2025-02-12 17:33 | W.PN.UPDATE ---
Update Note
Progress Note Update
As per discussion with - suggestion is to transfer to [facility] in [facility]. DIscussed with (hospitalist) and patient was accepted for transfer
[2025-02-12] MEDS: TYLENOL 650 MG PO (21:24)
[2025-02-12 21:49] LABS: Glucose - Point of Care 173 mg/dl (70-99)
[2025-02-12 21:51] LABS: Glucose - Point of Care 143 mg/dl (70-99)
[2025-02-13] MEDS: ZOSYN 50 IV ×3 (00:20→11:57)
[2025-02-13 03:00] VITALS: BP 118/64
--- NOTE | 2025-02-13 05:52 | PTCARENOTE ---
Patient is upset with discharge plans and lack of insurance coverage for transfer out of hospital. Patient and fiancee would like CM to get in touch with them first thing to discuss options.
[2025-02-13 06:00] VITALS: BMI 27.3
[2025-02-13 06:07] LABS: Hematocrit 30.3 % (39.0-52.0); Hemoglobin 10.4 g/dL (13.0-18.0); Mean Corp Hgb Conc. 34.3 g/dL (33.0-37.0); Mean Corpuscular Hgb 30.4 pg (27.0-31.0); Mean Corpuscular Volume 88.6 fL (80.0-94.0); Mean Platelet Volume 9.5 fL (7.4-10.4); Platelet Count 204 10^3/uL (130-400); Red Blood Cell Count 3.42 10^6/uL (4.70-6.10); Red Cell Dist. Width 14.1 % (11.5-14.5); White Blood Cell Count 10.9 10^3/uL (4.8-10.8)
[2025-02-13] MEDS: VANCOCIN 200 IV (06:20)
[2025-02-13 06:26] LABS: Glucose - Point of Care 122 mg/dl (70-99)
[2025-02-13 06:39] LABS: ALT (SGPT) 14 U/L (0-50); AST (SGOT) 16 U/L (17-59); Albumin 3.2 g/dl (3.5-5.0); Alkaline Phosphatase 65 U/L (38-126); Blood Urea Nitrogen 20 mg/dl (9-20); Calcium 8.7 mg/dl (8.4-10.2); Carbon Dioxide 22 mmol/L (22-30); Chloride 104 mmol/L (98-107); Estimated Creatinine Clearance 79 ml/min; Glucose 104 mg/dl (70-99); Sodium 133 mmol/L (135-145); Total Bilirubin 0.6 mg/dl (0.2-1.3); Total Protein 5.3 g/dl (6.3-8.2); eGFR > 60.00
[2025-02-13 06:48] LABS: Erythrocyte Sed Rate 68 mm/hour (0-20)
[2025-02-13 06:56] LABS: C-Reactive Protein > 270.00 mg/L (0.0-10.00)
[2025-02-13 07:38] VITALS: BP 113/56
[2025-02-13 08:12] LABS: Glucose - Point of Care 181 mg/dl (70-99)
[2025-02-13 08:24] LABS: % Basophils 0.3 % (0-2); % Eosinophils 0.8 % (0-6); % Immature Granulocytes 0.9 % (0-0.5); % Lymphocytes 14.4 % (20.5-51.1); % Monocytes 7.3 % (1.7-9.3); % Neutrophils 76.3 % (42.2-75.2); Absolute Eosinophils 0.1 10^3/uL (0-0.7); Absolute Immature Granulocytes 0.1 10^3/uL (0-0.05); Absolute Lymphocytes 1.6 10^3/uL (1.2-3.4); Absolute Monocytes 0.8 10^3/uL (0.1-0.6); Absolute Neutrophils 8.3 10^3/uL (1.4-6.5); Nucleated Red Blood Cells % 0 % (-)
--- NOTE | 2025-02-13 08:26 | PHA.VAN.FU ---
Vancomycin Assessment / Plan
- Assessment
Renal Function: Stable
WBC's are: Stable
In the past 24 hrs, patient has been: Afebrile
Concomitant Antimicrobials: ZOSYN
- Dosing Plan
Continue: 1000MG Q12H
- Monitoring Plan
Peak Level: 02/14 @2030
Trough Level: 02/15 @0530
- Follow Up
Pharmacy will continue to follow.
Vancomycin Follow UP
- -
Patient Age: 64
Patient Sex: Male
Vancomycin Day #: 2
Indication: Bacteremia
Requesting Provider: Dr. Hannon
Height / Weight:
Height 5 ft 10 in
Actual Weight 86.455 kg
- Vital Signs / Lab Results
Temp Pulse Resp BP Pulse Ox
99.3 F 92 19 113/56 98
02/13/25 07:38 02/13/25 07:38 02/13/25 07:38 02/13/25 07:38 02/13/25 07:38
Lab Results - Hematology
02/11/25 02/12/25 02/13/25
19:55 05:06 05:30
WBC 13.2 H 10.5 10.9 H
Lab Results - Chemistry
02/11/25 02/12/25 02/13/25
19:55 05:06 05:30
BUN 26 H 25 H 20
Creatinine 1.0 1.0 1.0
Estimated Creat Clear 79 79 79
Albumin 4.5 3.2 L
02/11/25 02/12/25
23:45 03:30
Lactic Acid 1.2 Cancelled
Microbiology Results
02/12/25 08:06 Blood Parasites Smear - Final
Blood/Venous
02/11/25 23:45 Blood Culture - Preliminary
Blood/Venous Positive culture in progress
Gram Stain - Final
02/12/25 00:09 Blood Culture - Preliminary
Blood/Venous Positive culture in progress
Gram Stain - Final
02/11/25 19:55 Influenza Types A & B (CORNELIO) - Final
Nasal Swab Negative for Influenza A & B, NAAT
Negative results must be combined with clinical observations
and patient history.
Nucleic Acid Amplification test (NAAT)performed on the
[employer] platform.
[2025-02-13] MEDS: ASPIR LOW (ENTERIC COATED) 81 MG PO (08:40)
[2025-02-13] MEDS: PROTONIX 40 MG PO (08:40)
[2025-02-13] MEDS: TOPROL XL 25 MG PO (08:40)
[2025-02-13] MEDS: MOTRIN 800 MG PO (09:06)
--- NOTE | 2025-02-13 09:47 | W.PN.HOSP.TC ---
Addendum entered and electronically signed by Ramo Sifuentes MD 02/13/25 14:07:
Pt requires stretcher transport due to pain and lengthy transport. Pt is also on a personnel monitor / telemetry due to consideration of endocarditis.
Addendum entered and electronically signed by Ramo Sifuentes MD 02/13/25 09:53:
PAtient prefers to manage pain with Ibuprofen in spite of detailed conversation about risks of PAMELA, worsening PUD, gastritis or GIB. Tylenol is not sufficient. Add lidocaine patch
Original Note:
Today's Communication/Plan
-
cont Abx
Echo pending while patient awaiting for transfer
Assessment / Plan
Assessment / Plan
64yo M with PMHx of CAD s/p CABG, lumbar surgery in June 2024 in [facility], bioprosthetic AV, DM, COPD, HLD came with episode of nighttime chills and rigors. Also found worsening lower back pain. Found possible UTI vs prespinal abscess with
bacteremia. NeuroSx evaluated recommended drain, however anatomically cannot be drained by [facility], so suggested transfer. As per discussion with (spinal surgeon originally operating on the patient) - suggestion is to transfer to [facility] in [facility]. DIscussed with (hospitalist) and patient was accepted for transfer
No respiratory, urinary, GI symptoms. No rash or wounds
A/P:
#Fever, rigors possible UTI
#Lower back pain with PMHX of back surgery
#Hx of bioprosthetic AV with midsystolic murmur
#Elevated procalcitonin
#Prevertebral abscess noted with concern for possible vertebral OM complicated by bacteremia
neuroSx
Repeat Bcx
Chest XR without pneumonia, but with mild interstitial edema
Bcx NTD
Ucx pending
US renal with mild L hydronephrosis with PMHX of BPH without nephrolithiasis
Echo pending
ID cosnult, meanwhile cont Vanco/ZOsyn
Check Lyme
blood smear neg for parasites
#Headache
CT head without acute finsings
#DM type 2 with unknown complications
Insulin SS, AccuCheck, DM diet
#CAD stable
#HLD
cont home meds
DVT ppx Lovenox
Full code
I have spent at least 58min reviewing chart, test results, providing direct patient care
Anticipated Discharge: > 48 hours
Subjective/Interval History
-
Date of Service: February 13, 2025
Objective Data
-
Labs:
Laboratory Results
02/13/25
05:30
WBC 10.9 H
Hgb 10.4 L
Hct 30.3 L
Plt Count 204
Sodium 133 L
Potassium 4.0
Chloride 104
Carbon Dioxide 22
BUN 20
Creatinine 1.0
Glucose 104 H
Calcium 8.7
Total Bilirubin 0.6
AST 16 L
ALT 14
Alkaline Phosphatase 65
Vital Signs:
Vital Signs
Temp Pulse Resp BP Pulse Ox
99.3 F 92 19 113/56 100
02/13/25 07:38 02/13/25 08:40 02/13/25 07:38 02/13/25 08:40 02/13/25 09:13
I&O
02/12/25 02/13/25 02/14/25
06:59 06:59 06:59
Intake Total 2089
Balance 2089
Review of Systems
-
History Source: Patient
All other systems: Reviewed and negative
Musculoskeletal: Reports Other (back pain)
Physical Exam
-
General: No Apparent Distress
HEENT: Normocephalic
Respiratory: Clear to Auscultation
Cardiac: Regular Rhythm
Musculoskeletal: No Clubbing, No Cyanosis and No Edema
Psych: Calm
[2025-02-13] MEDS: NOVOLOG FLEXPEN-LOW RESISTANCE 1 UNITS SC (09:53)
--- NOTE | 2025-02-13 09:54 | W.DCSUMMARY ---
Discharge Summary
Discharge Data
Date of Admission: 02/12/25
Date of Discharge: 02/13/25
-
Pending Results: No
Hospital Course
64yo M with PMHx of CAD s/p CABG, lumbar surgery in June 2024 in [facility], bioprosthetic AV, DM, COPD, HLD came with episode of nighttime chills and rigors. Also found worsening lower back pain. Found possible UTI vs prespinal abscess with
bacteremia. NeuroSx evaluated recommended drain, however anatomically cannot be drained by [facility], so suggested transfer. As per discussion with (spinal surgeon originally operating on the patient) - suggestion is to transfer to [facility] in [facility]. DIscussed with (hospitalist) and patient was accepted for transfer
No respiratory, urinary, GI symptoms. No rash or wounds
I have spent at least 58min reviewing chart, test results, providing direct patient care
patient was managed for:
#Fever, rigors possible UTI
#Lower back pain with PMHX of back surgery
#Hx of bioprosthetic AV with midsystolic murmur - cont telemetry
#Elevated procalcitonin
#Prevertebral abscess noted with concern for possible vertebral OM complicated by bacteremia
#Headache
#DM type 2 with unknown complications
#CAD stable
#HLD
Discharge Plan
-
Patient Disposition: Other
Discharge Diagnosis/Procedures: acute hospital
Condition: Fair
Diet: Regular
Activity: As tolerated
Referrals:
NONE,* [Family Provider] -
Prescriptions:
New
vancomycin in 0.9 % sodium chl 1 gram/200 mL Piggyback
1 g IV Q12H Qty: 0 0RF
Zosyn in dextrose (iso-osm) 3.375 gram/50 mL Piggyback
3.375 g IV Q6H Qty: 0 0RF
Continued
ibuprofen 800 mg Tablet
800 mg PO TIDPRN PRN (Reason: mild pain)
omeprazole 40 mg Capsule,Delayed Release(Dr/Ec)
40 mg PO DAILY
aspirin 81 mg Tablet,Delayed Release (Dr/Ec)
81 mg PO DAILY
metoprolol succinate 25 mg Tablet Extended Release 24 Hr
25 mg PO DAILY
fluticasone propionate 50 mcg/actuation [place],Suspension
1 spray INTRANASAL DAILYPRN PRN (Reason: congestion)
metformin 500 mg Tablet Extended Release 24 Hr
500 mg PO DAILY
Repatha SureClick 140 mg/mL Pen Injector
140 mg SC Q2W
Mounjaro 2.5 mg/0.5 mL Pen Injector
2.5 mg SC TH
Discharge Orders:
Discharge Patient (As Directed); Ordered 02/13/25
Ordered By: Ramo Sifuentes
Discharge Date and Time
Print Language: AMHARIC
[2025-02-13] MEDS: LIDOCAINE 4% PATCH 1 PATCH TOPICAL (10:06)
[2025-02-13 10:55] VITALS: BP 109/55
[2025-02-13 12:09] LABS: Glucose - Point of Care 139 mg/dl (70-99)
[2025-02-13] MEDS: NOVOLOG FLEXPEN-LOW RESISTANCE SC (12:30)
--- NOTE | 2025-02-13 14:16 | W.PN.ID1 ---
Date of Service
Date of Service: February 13, 2025
Today's Communication
Narrow to cefazolin. Await transfer
Assessment / Plan
Fever/chills
Group C strep bacteremia
Leukocytosis
Hx AVR (bioprosthetic; 2022, [facility])
Hx recent lumbar fusion
Suspected lumbar prevertebral abscess
Recommendations:
Given recovery of Gp C Strep, narrow to cefazolin 2 g IV every 8 hours.
Check echocardiogram (TTE ordered)
Patient for transfer to outside hospital tomorrow where original surgery was performed.
Monitor white count temperature curve.
Will follow repeat blood cultures.
����������������������������������������������������������
Chief Complaint
-: Bacteremia
Subjective / Review of Systems
Review of Systems: Fever
Vital Signs / Physical Exam
Vital Signs
Vital Signs
Temp Pulse Resp BP Pulse Ox
98.6 F 81 18 109/55 96
02/13/25 10:55 02/13/25 10:55 02/13/25 10:55 02/13/25 10:55 02/13/25 10:55
Physical Exam
Constitutional: No Acute Distress, Comfortable and Non-toxic
Eyes: Sclera Anicteric; Negative No Conjunctival Hemorrhage
Cardiovascular: S1/S2 and Murmur; Negative S3/S4
Pulmonary: Negative Wheezes or Rales
Gastrointestinal: Soft and Non Tender
Neurological: Awake and Alert
Psychological: Calm
Objective Data
Lab Data
Lab Results
02/13/25 05:30
02/13/25 05:30
ESR 68 mm/hour (0-20) H 02/13/25 05:30
Estimated Creat Clear 79 ml/min 02/13/25 05:30
Lactic Acid Cancelled 02/12/25 03:30
Total Bilirubin 0.6 mg/dl (0.2-1.3) 02/13/25 05:30
AST 16 U/L (17-59) L 02/13/25 05:30
ALT 14 U/L (0-50) 02/13/25 05:30
Alkaline Phosphatase 65 U/L (38-126) 02/13/25 05:30
C-Reactive Protein > 270.00 mg/L (0.0-10.00) H 02/13/25 05:30
Most recent labs reviewed.
Micro Results:
02/12/25 11:33 MRSA Screen - Final
Nose No Methicillin Resistant Staphylococcus aureus isolated.
02/12/25 13:32 Blood Culture - Preliminary
Blood/Venous No Growth in 24 hours- Final report to follow
02/11/25 23:45 Blood Culture - Preliminary
Blood/Venous Group C Streptococcus
Gram Stain - Final
02/12/25 00:09 Blood Culture - Preliminary
Blood/Venous Group C Streptococcus
Gram Stain - Final
02/11/25 22:59 Urine Culture - Final
Urine NO GROWTH
02/12/25 14:49 Blood Culture - Pending
Blood/Venous
02/12/25 08:06 Blood Parasites Smear - Final
Blood/Venous
02/11/25 19:55 Influenza Types A & B ([facility]ELIO) - Final
Nasal Swab Negative for Influenza A & B, NAAT
Negative results must be combined with clinical observations
and patient history.
Nucleic Acid Amplification test (NAAT)performed on the
[employer] platform.
Imaging:
02/12/2025 MRI lumbar spine: There is bone marrow edema and enhancement of the vertebral bodies (L3-S1). Evaluation is limited secondary to the large amount of artifact from patient's anterior and posterior lumbar fusion hardware. No evidence for
discitis or epidural abscess. There is prevertebral soft tissue edema from L3-S1 with fluid collection anterior to L5-S1 level (3.1 x 1.6 x 4.2 cm) concerning for prevertebral abscess. Severe spinal canal stenosis is noted at L3-L4. Please see
full dictation for additional detail.
[2025-02-13] MEDS: ANCEF 10 IV (15:03)
[2025-02-13 15:20] VITALS: BP 108/60
--- NOTE | 2025-02-13 15:27 | CM ---
CM following re: d/c planning.
CM c/s for acute to acute transfer to [facility].
Call placed to [facility] @ transfer crete, made aware that pt has an accepting physician.
At this time, they cannot provide transportation, so is to manage this, which may include transport auth.
As for the transfer, no auth needed, per [facility] after checking with supervisor drawing.
CM confirmed pt is to go to [facility], although he has his surgery at [facility].
Per hospitalist, this was the recommendation of Dr. Ivy, pt's surgeon, who also sees pt at [facility].
Per [facility], they can accept pt today, as late as tomorrow 02/14 by the afternoon.
Otherwise, pt at risk to lose the bed.
Call placed to [facility], informed they can provide BLS transport at 10 AM tomorrow, or WC van at 12 PM tomorrow.
However, pt reports he cannot tolerate sitting up for such a long ride; additionally, pt on telemetry, so ALS is needed.
Due to this, [facility] able to secure transport for 1600 TODAY, 02/13. Medical necessity and forms provided.
No payment needed by pt up front.
MD and med team updated. Call back to [facility]ish at transfer center [phone], advised him of the plan, he reports pt will go to room 431.
RN report: [phone] [id number]

CM met with pt and fiance at bedside to explain all details and answer question. Pt pleased with outcome.
Goal: transfer to [facility] today 1600 via ALS.
[2025-02-14 13:31] LABS: Lyme Antibody Screen, EIA Negative (Negative)
== END 2025-02-13 17:31 | disposition short-term general hospital (02) | DRG 872 ==
LOC: 3 WEST ACU 02:01
PROVIDERS: Registered Nurse; Student in an Organized Health Care Education/Training Program; ADMITTING PHYSICIAN Hospitalist; ATTENDING PHYSICIAN Internal Medicine; CONSULT PHYSICIAN Internal Medicine Infectious Disease; CONSULT PHYSICIAN Neurological Surgery; EMERGENCY PHYSICIAN Emergency Medicine
DX: A40.8 Other streptococcal sepsis (principal); M46.26 Osteomyelitis of vertebra, lumbar region; N39.0 Urinary tract infection, site not specified; E78.00 Pure hypercholesterolemia, unspecified; G89.29 Other chronic pain; I10 Essential (primary) hypertension; E11.69 Type 2 diabetes mellitus with other specified complication; I25.10 Atherosclerotic heart disease of native coronary artery without angina pectoris; I35.0 Nonrheumatic aortic (valve) stenosis; J44.9 Chronic obstructive pulmonary disease, unspecified; M51.362 Other intervertebral disc degeneration, lumbar region with discogenic back pain and lower extremity pain; F17.210 Nicotine dependence, cigarettes, uncomplicated; Z11.52 Encounter for screening for COVID-19; Z98.1 Arthrodesis status; Z95.3 Presence of xenogenic heart valve; Z95.1 Presence of aortocoronary bypass graft; Z82.49 Family history of ischemic heart disease and other diseases of the circulatory system; Z79.84 Long term (current) use of oral hypoglycemic drugs; Z79.82 Long term (current) use of aspirin; Z79.899 Other long term (current) drug therapy
CPT/HCPCS: 70450; 71046; 72158; 76770; 80048; 80053; 81003; 81015; 82962; 83036; 83605; 83880; 84145; 85025; 85027; 85652; 86140; 86618; 87015; 87040; 87070; 87077; 87086; 87147; 87186; 87205; 87207; 87502; 87811; 96361; 96365; 96375; 99285; A9575